=== PATIENT | female | born 1995 | race Caucasian/White ===

== ENCOUNTER 2017-10-15 22:59 | Outpatient (CLI) | END 2017-10-16 02:30 | disposition home or self-care (01) ==

== ENCOUNTER 2017-11-27 12:09 | Outpatient (CLI) | END 2017-11-27 14:10 | disposition home or self-care (01) ==

== ENCOUNTER 2017-12-01 12:19 | Outpatient (CLI) | END 2017-12-01 14:35 | disposition home or self-care (01) ==

== ENCOUNTER 2017-12-08 21:27 | Outpatient (CLI) | END 2017-12-08 23:03 | disposition home or self-care (01) ==

== ENCOUNTER 2017-12-18 21:50 | Outpatient (CLI) | END 2017-12-18 23:52 | disposition home or self-care (01) ==

== ENCOUNTER 2017-12-23 12:34 | Outpatient (CLI) | END 2017-12-23 14:30 | disposition home or self-care (01) ==

== ENCOUNTER 2017-12-25 21:04 | Outpatient (CLI) | END 2017-12-25 22:15 | disposition home or self-care (01) ==

== ENCOUNTER 2018-01-05 23:15 | Inpatient (IN) | END 2018-01-09 12:57 | disposition home or self-care (01) | DRG 775 ==

== ENCOUNTER 2018-05-31 03:30 | Emergency (ER) | END 2018-05-31 06:47 | disposition home or self-care (01) ==